=== PATIENT | male | born 1995 | race Caucasian/White ===

== ENCOUNTER 2017-04-29 03:21 | Emergency (ER) | payer SELFPAY ==
[~2017-04-29] VITALS: Ht 182.9 cm; Wt 77.1 kg
[2017-04-29 05:13] VITALS: BP 130/73
== END 2017-04-29 15:26 | disposition home or self-care (01) ==
LOC: EDBD 03:21 → ER 03:25
DX: S70.01XA Contusion of right hip, initial encounter (principal); S50.02XA Contusion of left elbow, initial encounter; F10.129 Alcohol abuse with intoxication, unspecified; V73.5XXA Driver of bus injured in collision with car, pick-up truck or van in traffic accident, initial encounter; Y93.89 Activity, other specified; Y92.89 Other specified places as the place of occurrence of the external cause; Y99.8 Other external cause status
CPT/HCPCS: 36415; 73070; 73502; 80320